=== PATIENT | female | born 1930 | race Caucasian/White ===

== ENCOUNTER → 2017-09-12 | Outpatient (CLI) | payer MEDICARE, MEDICAID ==
[~2017-09-12] MED LIST: ASPIR 8181 MG PO; ASPIRIN EC325 M1; CIPRODEX OTIC7.5 ML OTIC; CIPROFLOXACIN500 M1 PO; COUMADIN 5 MG TA5 M1 PO; CVS OMEGA-3 KR1 EACH; DOXYCYCLINE 10100 M1 PO; HYDROCODON-ACE1 EAC7 PO; KEFLEX500 M1 PO; LASIX 20 MG TAB20 MG PO; LEVAQUIN 250 M250 MG PO; LEVOTHYROXIN0.125 M1 PO; LOPRESSOR50 PO; LUTEIN6 M1 PO; MECLIZINE HCL25 M1 PO; METROCREAM45 GM TP; MYRBETRIQ50 MG PO; NITROGLYCERIN0.4 MG SUBLING; POTASSIUM20 PO; PREDNISONE 10 M10 MG PO; PROBIOTIC1 EAC1 PO; SIMVASTATIN40 MG PO; SORINE 80 MG TA80 M1 PO; SOTALOL; SYNTHROID100 MCG PO; SYNTHROID75 MCG PO; TRIAMCINOLONE A80 G2 TOP; VESICARE 5 MG TA5 M1; VITAMIN B-12500 MCG PO; VITAMIN D 5050000 I1 PO; VITAMIN D1000 UNI1 PO; VITAMIN D3400 UNIT PO; VYTORIN 10-101 EACH PO; VYTORIN 10-401 EACH; [UNRECOGNIZED DRUG - OTHER] PO
== END ==
LOC: M.RAD 07-25 16:58
DX: Z12.31 Encounter for screening mammogram for malignant neoplasm of breast (principal); M85.80 Other specified disorders of bone density and structure, unspecified site; Z78.0 Asymptomatic menopausal state

== ENCOUNTER 2018-04-30 20:11 | Emergency (ER) | payer MEDICARE, MEDICAID ==
[~2018-04-30] VITALS: Ht 162.6 cm; Wt 98.0 kg
[2018-04-30] MEDS ORDERED: SPIRONOLACTONE25 MG PO (20:40)
[2018-04-30] MEDS ORDERED: MYRBETRIQ50 MG PO (20:40)
[2018-04-30] MEDS ORDERED: SENNA8.6 MG PO (20:41)
[2018-04-30] MEDS ORDERED: TACROLIMUS0.5 G1 TOP (20:41)
[2018-04-30] MEDS ORDERED: NORCO 5-325 TA1 EAC1 PO (21:21)
[2018-04-30 22:01] VITALS: BP 122/94
== END 2018-04-30 22:02 | disposition home or self-care (01) ==
LOC: M.ERS 20:11
DX: S20.211A Contusion of right front wall of thorax, initial encounter (principal); I48.91 Unspecified atrial fibrillation; I50.9 Heart failure, unspecified; E78.00 Pure hypercholesterolemia, unspecified; Z95.0 Presence of cardiac pacemaker; Z90.11 Acquired absence of right breast and nipple; Z96.651 Presence of right artificial knee joint; Z96.642 Presence of left artificial hip joint; Z88.5 Allergy status to narcotic agent; Z88.8 Allergy status to other drugs, medicaments and biological substances; W01.190A Fall on same level from slipping, tripping and stumbling with subsequent striking against furniture, initial encounter; Y93.89 Activity, other specified; Y92.89 Other specified places as the place of occurrence of the external cause; Y99.8 Other external cause status

== ENCOUNTER → 2018-05-09 | Outpatient (CLI) | payer MEDICARE, MEDICAID ==
[~2018-05-09] MED LIST changes: +NORCO 5-325 TA1 EAC1 PO; +SENNA8.6 MG PO; +SPIRONOLACTONE25 MG PO; +TACROLIMUS0.5 G1 TOP
== END ==
LOC: M.RAD 13:00
DX: S20.211A Contusion of right front wall of thorax, initial encounter (principal); S22.31XA Fracture of one rib, right side, initial encounter for closed fracture; R59.0 Localized enlarged lymph nodes; E07.9 Disorder of thyroid, unspecified; M25.78 Osteophyte, vertebrae; G89.29 Other chronic pain; J98.4 Other disorders of lung; X58.XXXA Exposure to other specified factors, initial encounter; Y93.89 Activity, other specified; Y92.89 Other specified places as the place of occurrence of the external cause; Y99.8 Other external cause status; Z95.0 Presence of cardiac pacemaker

== ENCOUNTER 2019-03-11 19:27 | Emergency (ER) | payer MEDICARE, MEDICAID ==
[~2019-03-11] VITALS: Ht 162.6 cm; Wt 81.7 kg
[2019-03-11 20:14] LABS: URINE BILIRUBIN NEGATIVE (Negative); URINE BLOOD 3+ (Negative); URINE CLARITY CLOUDY; URINE COLOR YELLOW; URINE GLUCOSE-RANDOM NEGATIVE (Negative); URINE KETONES NEGATIVE (Negative); URINE LEUKOCYTES-REFLEX 2+ (Negative); URINE NITRITE-REFLEX POSITIVE (Negative); URINE PROTEIN 2+ (Negative); URINE SPECIFIC GRAVITY 1.025 (1.005-1.030); URINE UROBILINOGEN 0.2 E.U./dl (0.2-1.0)
[2019-03-11] MEDS ORDERED: MACROBID 100 M100 M1 PO (20:23)
[2019-03-11] MEDS ORDERED: PYRIDIUM200 MG PO (20:23)
[2019-03-11 20:30] LABS: BACTERIA-REFLEX >30 Many /HPF (None Seen); CASTS None Seen /LPF (None Seen); CRYSTALS None Seen /LPF (None Seen); SQUAMOUS 0-3 Few /LPF (0-3); URINE RBC >20 Many /HPF (0-2); URINE WBC-REFLEX >25 Many /HPF (0-5)
[2019-03-11 20:41] VITALS: BP 161/64
== END 2019-03-11 21:12 | disposition home or self-care (01) ==
LOC: M.ERS 19:27
PROVIDERS: Emergency Medicine
DX: N39.0 Urinary tract infection, site not specified (principal); I48.91 Unspecified atrial fibrillation; I50.9 Heart failure, unspecified; E78.00 Pure hypercholesterolemia, unspecified; Z96.642 Presence of left artificial hip joint; Z96.651 Presence of right artificial knee joint; Z90.11 Acquired absence of right breast and nipple; Z95.0 Presence of cardiac pacemaker; Z88.6 Allergy status to analgesic agent; Z88.8 Allergy status to other drugs, medicaments and biological substances

== ENCOUNTER → 2019-06-12 | Outpatient (CLI) | payer MEDICARE, MEDICAID ==
[~2019-06-12] MED LIST changes: +MACROBID 100 M100 M1 PO; +PYRIDIUM200 MG PO
== END ==
LOC: M.RAD 12:48
DX: N64.4 Mastodynia (principal); Z95.0 Presence of cardiac pacemaker; Z96.89 Presence of other specified functional implants

== ENCOUNTER → 2020-01-06 | Outpatient (CLI) | payer MEDICARE, MEDICAID | LOC: M.RAD 12:35 | PROVIDERS: ATTEND Family Medicine | DX: I48.91 Unspecified atrial fibrillation (principal); I51.7 Cardiomegaly; Z95.0 Presence of cardiac pacemaker ==

== ENCOUNTER 2020-06-14 22:02 | Inpatient (IN) | payer MEDICARE, MEDICAID ==
[~2020-06-14] VITALS: Ht 165.1 cm; Wt 99.6 kg
--- NOTE | ~2020-06-14 | EMS ---
[facility] [address] [place] [address] EMS Patient Care Report Name: SISTER FANNIE GONZALEZ Room: [address] IN [facility].#: [id number] Admission: 06/15/20 Attend Phys: Jason Deras Discharge: Date of : 32 Report #: [id number] THIS REPORT FOR: //name// Report Transmitted: 06/15/2020 07:58 EMS Care Summary [facility] Randy JC Incident [id number] @ 06/14/2020 21:01 Incident Location [address] [place] [address] Patient Fannie Gonzalez Female, 89 Years 1930 Patient Address [address] [place] [address] Patient History Presence of artificial hip joint,Unspecified dementia,Pacemaker/AICD,Personal history of other venous thrombosis and embolism,Hypertension (HTN), Patient Allergies , Patient Medications , Sotalol, Coumadin, Zocor, Lutein, Nitrofurantoin, Chief Complaint Pain-extremity lower Disposition Transported No Lights/Vowinckel Dispatch Reason Falls Transported To [facility] Narrative [id number] ARRIVED ON SCENE OF [facility] FOR A FALL WITH A HIP INJURY. [facility] PERSONNEL MADE PATIENT CONTACT ON AN UPSTAIRS FLOOR WITH AN AWAKE AND ALERT FEMALE SITTING COMFORTABLY IN A CHAIR IFD RESPONDERS OBTAINED [address] [place] [address] EMS Patient Care Report Name: SISTER FANNIE GONZALEZ Room: [address] IN [facility]#: [id number] Admission: 06/15/20 Attend Phys: Jason Deras Discharge: Date of : 32 Report #: [id number] VITAL SIGNS. THE PATIENT HAD NO OBVIOUS INJURIES BUT REPORTED SEVERE PAIN IN HER LEFT HIP RADIATING TO THE INNER THIGH AND DOWN THE INSIDE OF HER UPPER LEFT LEG AFTER SHE LOST HER FOOTING AND SLID DOWN TO THE FLOOR. PHYSICAL ASSESSMENT FINDINGS INCLUDED SHORTENING AND OUTWARD ROTATION OF THE LEFT LEG WHICH, ACCORDING TO THE PATIENT AND OTHERS ON SCENE, REPORTED THAT THE SHORTENING OF THE LEG HAS BEEN PRESENT SINCE HER HIP REPLACEMENT SEVERAL YEARS AGO. FANNIE WAS ASSISTED ONTO THE COT WHERE SHE WAS SECURED VIA 5 SAFETY STRAPS PRIOR TO BEING SECURED INTO THE AMBULANCE. TREATMENTS AND INTERVENTIONS WERE EXECUTED AND CONTINUED DURING TRANSPORT TO [facility] ER WITH A MINOR DECREASE IN PAIN FOLLOWING MORPHINE ADMINISTRATION. UPON ARRIVAL, FANNIE WAS REMOVED FROM THE UNIT AND TAKEN INSIDE TO ER 4 WHERE SHE WAS TRANSFERRED LATERALLY ONTO THE ER BED VIA DRAW SHEET. REPORT WAS GIVEN TO THE RECEIVING RN AND CARE WAS TRANSFERRED. [facility] BACK IN SERVICE. Initial Vitals @21:10Pain: 12/03, @21:48Pain: 11/02, @21:57Pain: 10/02, @21:10SpO2: 97, @21:55SpO2: 97, @21:20 @21:10P: 60,R: 16,BP: 160/70,Revised Trauma: 8, @21:55P: 76,R: 16,BP: 142/72,Revised Trauma: 8, @21:10GCS: 15, @21:55GCS: 15, @21:30Glucose: 119, Assessments @21:10MENTAL:SKIN:HEENT:LUNG SOUNDS:ABDOMEN:PELVIS//GI:EXTREMITIES:PULSE:NEURO: Impression Injury Procedures @21:32Morphine - 3.000 Milligrams (mg) - Intravenous (IV)Response: Improved@21:33Ondansetron - 4.000 Milligrams (mg) - Intravenous (IV)Response: Unchanged@21:50Morphine - 2.000 Milligrams (mg) - Intravenous (IV)Response: Improved@21:30 cc () Site: Antecubital-LeftResponse: UnchangedSucceeded@21:203-Lead ECGResponse: UnchangedSucceeded Timeline 20:58,Call Received 20:58,Dispatch Notified 20:58,Psap Call 21:01,[place] [address] EMS Patient Care Report Name: SISTER FANNIE GONZALEZ Room: [address] IN [facility]#: [id number] Admission: 06/15/20 Attend Phys: Jason Deras Discharge: Date of : 32 Report #: [id number] 21:01,En Route 21:08,On Scene 21:10,At Patient 21:10,BP: / M,PULSE: ,RR: R,SPO2: Ox,ETCO2: ,BG: ,PAIN: 9,GCS: , 21:10,BP: / M,PULSE: ,RR: R,SPO2: 97 Ox,ETCO2: ,BG: ,PAIN: ,GCS: , 21:10,BP: 160/70 M,PULSE: 60,RR: 16 R,SPO2: Ox,ETCO2: ,BG: ,PAIN: ,GCS: , 21:10,BP: / M,PULSE: ,RR: R,SPO2: Ox,ETCO2: ,BG: ,PAIN: ,GCS: 15, 21:20,3-Lead ECG,Response: UnchangedSucceeded, 21:20,BP: / M,PULSE: ,RR: R,SPO2: Ox,ETCO2: ,BG: ,PAIN: ,GCS: , 21:30, cc Site: Antecubital-Left,Response: UnchangedSucceeded, 21:30,BP: / M,PULSE: ,RR: R,SPO2: Ox,ETCO2: ,B,PAIN: ,GCS: , 21:32,Morphine - 3.000 Milligrams (mg) - Intravenous (IV),Response: Improved 21:33,Ondansetron - 4.000 Milligrams (mg) - Intravenous (IV),Response: Unchanged 21:33,Depart Scene 21:48,BP: / M,PULSE: ,RR: R,SPO2: Ox,ETCO2: ,BG: ,PAIN: 8,GCS: , 21:50,Morphine - 2.000 Milligrams (mg) - Intravenous (IV),Response: Improved 21:55,BP: / M,PULSE: ,RR: R,SPO2: 97 Ox,ETCO2: ,BG: ,PAIN: ,GCS: , 21:55,BP: 142/72 M,PULSE: 76,RR: 16 R,SPO2: Ox,ETCO2: ,BG: ,PAIN: ,GCS: , 21:55,BP: / M,PULSE: ,RR: R,SPO2: Ox,ETCO2: ,BG: ,PAIN: ,GCS: 15, 21:57,BP: / M,PULSE: ,RR: R,SPO2: Ox,ETCO2: ,BG: ,PAIN: 7,GCS: , 21:57,At Destination 22:17,Call Closed Disclaimer v1.1 Copyright 2020 [employer] This EMS Care Summary contains data elements from the applicable legal record (which may be displayed differently). It is designed to provide pertinent information for the following purposes: continuity of care, clinical quality, and state data reporting. The complete legal record is available to ED staff and administrators of the receiving hospital in [employer] Patient Tracker. All data is provided "as is."
[2020-06-14 22:05] VITALS: BP 143/56
[2020-06-14] MEDS ORDERED: LUTEIN6 MG PO (22:20)
[2020-06-14] MEDS ORDERED: MACRODANTIN50 M1 PO (22:21)
[2020-06-14 23:31] LABS: URINE BILIRUBIN NEGATIVE (Negative); URINE BLOOD 1+ (Negative); URINE CLARITY CLEAR; URINE COLOR YELLOW; URINE GLUCOSE-RANDOM NEGATIVE (Negative); URINE KETONES NEGATIVE (Negative); URINE LEUKOCYTES-REFLEX TRACE (Negative); URINE NITRITE-REFLEX NEGATIVE (Negative); URINE PROTEIN NEGATIVE (Negative); URINE SPECIFIC GRAVITY >= 1.030 (1.005-1.030); URINE UROBILINOGEN 0.2 E.U./dl (0.2-1.0)
[2020-06-14 23:54] LABS: HYALINE CASTS 0-3 Few /LPF (None Seen); SQUAMOUS >10 Many /LPF (0-3)
[2020-06-14 23:55] LABS: BACTERIA-REFLEX 1-9 Few /HPF (None Seen); CRYSTALS None Seen /LPF (None Seen); URINE RBC 3-10 Few /HPF (0-2); URINE WBC-REFLEX 0-5 Rare /HPF (0-5)
[2020-06-15 01:30] VITALS: BP 153/59
[2020-06-15 08:03] VITALS: BP 158/65
[2020-06-15 08:13] LABS: ABSOLUTE EOSINOPHILS 0.2 thou/uL (0.0-0.7); BASOPHILS 0.7 %; WBC 6.5 thou/uL (4.0-11.0)
[2020-06-15 08:16] LABS: ABSOLUTE MONOCYTES 0.8 thou/uL (0.0-1.2); RBC 4.31 mil/uL (4.20-5.00)
[2020-06-15 08:18] LABS: CALCIUM 9.2 mg/dL (8.5-10.1); CREATININE 0.8 mg/dL (0.6-1.3); MAGNESIUM 2.2 mg/dL (1.8-2.4); POTASSIUM 4.2 mmol/L (3.5-5.1)
[2020-06-15 08:20] LABS: ABSOLUTE LYMPHOCYTES 1.1 thou/uL (0.8-5.3); ABSOLUTE NEUTROPHILS 4.4 thou/uL (1.6-8.1); EOSINOPHILS 2.9 %; HEMOGLOBIN 12.5 gm/dL (12.0-15.0); LYMPHOCYTES 16.3 %; MCHC 32.9 g/dL (28.0-37.0); MCV 88.2 fL (80.0-100.0); MONOCYTES 12.5 %; MPV 9.4 fl. (7.2-11.1); NUCLEATED RBCS 0 /100WBC; PLATELET COUNT* 145 thou/uL (150-400); POLYS 67.6 %
[2020-06-15 08:41] LABS: INR 2.1; PROTIME 21.2 Seconds (9.20-11.50)
--- NOTE | 2020-06-15 17:00 | NUR ---
PT.RESTING IN BED. SHE WAS ALERT AND ORIENTED. SHE SAID SHE L[facility] IN [facility]. SHE HAS ASSISTANCE WITH WHATEVER SHE NEEDS. THE [facility] HAS HIRED AN RN-YVES PEDRAZA TO ASSIST THEM WITH THINGS-BATHING, DRESSING, ETC. PT.USES A WALKER AND A SCOOTER FOR MOBILITY. SHE WILL START PT/OT TOMORROW TO DETERMINE WHAT HER PLAN OF CARE WILL BE FOR DISCHARGE.
[2020-06-15 17:44] VITALS: BP 130/56
--- NOTE | 2020-06-15 18:14 | NUR ---
PATIENT HAS REMAINED A&OX3 (CONFUSED, FORGETFUL), PLEASANT AND COOPERATIVE WITH CARES THIS SHIFT. PATIENT HAS DENIED ANY PAIN. SPOKE WITH PATIENT'S INVOICE CHECKER, ANTWAN, THIS TO UPDATE ON PATIENT. PATIENT HAS DENIED ANY PAIN DURING THIS SHIFT. CALL LIGHT AND FREQUENTLY USED ITEMS WITHIN REACH.
[2020-06-16 04:47] LABS: INR 2.4; PROTIME 24.1 Seconds (9.20-11.50)
[2020-06-16 04:49] LABS: CALCIUM 9.3 mg/dL (8.5-10.1); CREATININE 0.8 mg/dL (0.6-1.3); POTASSIUM 4.4 mmol/L (3.5-5.1)
[2020-06-16 05:09] LABS: HEMATOCRIT 38.2 % (37.0-47.0); HEMOGLOBIN 12.6 gm/dL (12.0-15.0); MCHC 33.1 g/dL (28.0-37.0); MCV 87.7 fL (80.0-100.0); MPV 9.8 fl. (7.2-11.1); RBC 4.36 mil/uL (4.20-5.00); RDW-CV 13.9 % (10.5-14.5)
[2020-06-16 07:55] VITALS: BP 137/56
--- NOTE | 2020-06-16 08:07 | NUR ---
PATIENT HAS RESTED WELL THROUGHOUT MOST OF THE NIGHT. VSS ON 2L 02 VIA NASAL CANNULA. PATIENT UP WITH ASSIST X 2 TO THE BSC. MEDICATIONS GIVEN ORDERED AND CHARTED. LEFT UPPER ARM MIDLINE-SL. PATIENT INCONTINENT OF URINE AT TIMES AND URINE HAS VERY STRONG ODOR AND DARKY YELLOW COLORED. FALL PRECAUTIONS IN PLACE AND HOURLY ROUNDS MADE. WILL CONTINUE WITH PLAN OF CARE AND NURSING TO MONITOR.
--- NOTE | 2020-06-16 14:40 | NUR ---
RECEIVED CALL FROM PT'S DPOA ANTWAN. STATES PT IS BASELINE CONFUSED AND SLEEPS MOST OF THE DAY. ALSO STATES PT JUST RECEIVED A SLEEP APNEA MACHINE AND HAS BEEN USING IT. PT HAS ACCESS TO A WALKER, BEDSIDE COMMODE, AND SHOWER CHAIR AT THE [facility]. PER REPORT PT ALSO FORGETFUL AND NEEDS FREQUENT ORIENTATION. TRANSFERRED CALL AND PT SPOKE TO SISTER ANTWAN FOR ABOUT 30 MINUTES WHILE SITTING IN THE CHAIR TODAY.
[2020-06-16 17:26] VITALS: BP 156/57
--- NOTE | 2020-06-16 17:33 | NUR ---
PT ALERT AND ORIENTED X 3. PT IS FORGETFUL AT TIMES. NEEDS REORIENTING. PT SITTING IN THE CHAIR AT THIS TIME. PT WORKED WITH PHYSICAL THERAPY. UP STEADY WITH A WALKER. PT SLEEPS OFF AND ON. PT ALSO WORKED WITH OCCUPATIONAL THERAPY TODAY. SPOKE WITH PT'S CONTACT WHO STATES PT IS BASELINE CONFUSED AND USES A WALKER. O2 PLACED ON PT @ 1700. PT O2 SAT 89-90 WHILE UP IN THE CHAIR. PT ATE ALL MEALS TODAY. CALL LIGHT WITHIN REACH. WILL CONTINUE TO MONITOR.
[2020-06-16 20:20] VITALS: BP 110/45
[2020-06-17 04:53] LABS: INR 2.6
--- NOTE | 2020-06-17 05:00 | NUR ---
PATIENT HAS SLEPT WELL THROUGHOUT THE NIGHT. VSS ON RA. MEDICATIONS GIVEN ORDERED AND CHARTED. PATIENT USES CALL LIGHT APPROPRIATELY. PATIENT HAS BEEN INCONTINENT OF URINE DURING THE NIGHT AT TIMES. LEFT UPPER ARM MIDLINE-SL. FALL PRECAUTIONS IN PLACE AND HOURLY ROUNDS MADE. WILL CONTINUE WITH PLAN OF CARE AND NURSING TO MONITOR.
[2020-06-17 07:40] VITALS: BP 144/55
--- NOTE | 2020-06-17 12:00 | NUR ---
SPOKE WITH BEHZAD PEDRAZA/[facility] . DISCUSSED ARU AND THAT THERAPISTS ARE RECOMMENDING ACUTE REHAB AT DISCHARGE. SHE WAS IN AGREEMENT. SHE SAID SHE WILL HAVE PLENTY OF HELP AT HOME WHEN SHE DOES RETURN HOME TO THE [facility]. PT. ALSO USES A SCOOTER ALOT. SHE WOULD LIKE ME TO SPEAK WITH PT.ABOUT ARU. SHE WILL ALSO CALL HER LATER. CM SAW PT.AND EXPLAINED ARU AND THAT IT WOULD HELP HER TO BE MORE INDEPENDENT WHEN SHE WOULD GO HOME. SHE DID NOT FEEL SHE WAS DEPENDENT NOW. EXPLAINED SHE WOULD MOST LIKELY NEED ASSIST TO GET IN AND OUT OF BED AT HOME, HELP WITH BATHING, DRESSING. SHE AGREED. DID HAVE DIFFICULTY UNDERSTANDING CONCEPT OF ACUTE REHAB. TOLD HER NUBIA SHARP WOULD SEE HER LATER THIS AFTERNOON.
[2020-06-17 15:19] VITALS: BP 128/57
--- NOTE | 2020-06-17 16:08 | NUR ---
PT.HAS BEEN ACCEPTED TO [facility] AND CAN GO THERE LATER TODAY. NUBIA SHARP SAW PT.EARLIER AND FELT PT.WOULD BE A GOOD REHAB CANDIDATE. PT.AGREEABLE.
[2020-06-17] MEDS ORDERED: TRAMADOL 50 MG50 MG PO (16:14)
[2020-06-17] MEDS ORDERED: HYDROCODON-ACE1 EAC7 PO (16:14)
--- NOTE | 2020-06-17 16:39 | NUR ---
PT AWAKE/ALERT, BUT CONFUSED/FORGETFUL. VSS, FALL PRECAUTIONS IN PLACE. PT ON 2L O2 BY NC AT HS, SAME HOME USE. PT IS LYTTON. IV TO LAC PATENT, DRESSING C/D/I. MIDLINE TO CELESTINA PATENT, DRESSING C/D/8I WELL. PT IS ASSISTED TO REPOSITION Q2H FOR SKIN INTEGRITY. PT EVALUATED AND APPROVED FOR REHAB UNIT. PT TO TRANSFER PRIOR TO SHIFT CHANGE THIS EVENING. LENS COATING TECHNICIAN UPDATED ON PHONE BY CASE MANAGEMENT TODAY. PT RESTS IN ROOM WITH CALL LIGHT IN REACH.
--- NOTE | 2020-06-17 18:19 | NUR ---
PT TO REHAB UNIT APPROX 1800. PT TRANSPORTED ON BED PER EDUCATION PROGRAM ASSOCIATE REQUEST. PT PERSONAL BELONGINGS ACCOMPANIED PT TO NEW UNIT. PT TOPILETED AND NEW BRIEF JUST PRIOR TO TRANSFERRING TO REHAB. IV ACCESS REMOVED, NO AXCTIVE BLEEDING OR SWELLING AT SITES. PT ON 2L O2 AND WEARING MASK DURING TRANSPORT. PT SETTLED INTO NEW ROOM WITH CALL LIGHT IN REACH. REHAB STAFF NOTIFIED.
== END 2020-06-17 18:00 | DRG 556 ==
LOC: M.ERS 22:02 → M.TBA-ER 23:35 → M.ORTHSURG 06-15 01:18
PROVIDERS: Emergency Medicine; Internal Medicine; ADMIT Internal Medicine; ATTEND Internal Medicine
PROC: 05HY33Z Insertion of Infusion Device into Upper Vein, Percutaneous Approach (ICD-10-PCS; principal; 2020-06-15)
DX: M25.552 Pain in left hip (principal); I50.32 Chronic diastolic (congestive) heart failure; D68.69 Other thrombophilia; I48.91 Unspecified atrial fibrillation; E78.00 Pure hypercholesterolemia, unspecified; I49.1 Atrial premature depolarization; E78.5 Hyperlipidemia, unspecified; Z96.642 Presence of left artificial hip joint; Z96.651 Presence of right artificial knee joint; Z90.11 Acquired absence of right breast and nipple; Z20.822 Contact with and (suspected) exposure to COVID-19; Z95.0 Presence of cardiac pacemaker; Z88.6 Allergy status to analgesic agent; Z88.8 Allergy status to other drugs, medicaments and biological substances; Z79.899 Other long term (current) drug therapy; W18.39XA Other fall on same level, initial encounter; Y93.89 Activity, other specified; Y92.098 Other place in other non-institutional residence as the place of occurrence of the external cause; Y99.8 Other external cause status

== ENCOUNTER 2020-06-17 16:06 | Inpatient (IN) | payer MEDICARE, MEDICAID ==
[~2020-06-17] VITALS: Ht 165.1 cm; Wt 93.1 kg
[~2020-06-17 16:06] MED LIST changes: +LUTEIN6 MG PO; +MACRODANTIN50 M1 PO
[2020-06-17] MEDS ORDERED: TRAMADOL 50 MG50 MG PO (16:14)
[2020-06-17] MEDS ORDERED: HYDROCODON-ACE1 EAC7 PO (16:14)
[2020-06-17 20:32] VITALS: BP 149/63
[2020-06-18 04:45] LABS: HEMATOCRIT 37.1 % (37.0-47.0); HEMOGLOBIN 12.1 gm/dL (12.0-15.0); MCH 28.8 pg (26.0-34.0); MCHC 32.7 g/dL (28.0-37.0); MCV 88.3 fL (80.0-100.0); MPV 9.3 fl. (7.2-11.1); RBC 4.21 mil/uL (4.20-5.00); WBC 8.3 thou/uL (4.0-11.0)
[2020-06-18 04:59] LABS: CALCIUM 8.7 mg/dL (8.5-10.1); CREATININE 0.7 mg/dL (0.6-1.3); POTASSIUM 4.1 mmol/L (3.5-5.1)
[2020-06-18 08:20] VITALS: BP 118/54
[2020-06-18 20:28] VITALS: BP 135/63
[2020-06-19 04:50] LABS: INR 2.2; PROTIME 21.9 Seconds (9.20-11.50)
[2020-06-19 08:28] VITALS: BP 138/58
[2020-06-19 19:00] VITALS: BP 160/62
[2020-06-20 07:56] VITALS: BP 155/61
[2020-06-20 20:39] VITALS: BP 140/63
[2020-06-20 22:02] LABS: INR 1.9
[2020-06-21 05:09] LABS: INR 1.9
[2020-06-21 09:30] VITALS: BP 101/41
[2020-06-21 19:00] VITALS: BP 125/47
[2020-06-22 04:39] LABS: INR 1.8; PROTIME 18.9 Seconds (9.20-11.50)
[2020-06-22 08:10] VITALS: BP 143/50
[2020-06-22 19:00] VITALS: BP 118/48
[2020-06-23 05:08] LABS: HEMATOCRIT 38.6 % (37.0-47.0); HEMOGLOBIN 12.7 gm/dL (12.0-15.0); MPV 8.9 fl. (7.2-11.1); RBC 4.38 mil/uL (4.20-5.00); RDW-CV 14.4 % (10.5-14.5)
[2020-06-23 05:09] LABS: PROTIME 20.7 Seconds (9.20-11.50)
[2020-06-23 05:12] LABS: CALCIUM 9.6 mg/dL (8.5-10.1); CREATININE 0.8 mg/dL (0.6-1.3); POTASSIUM 4.2 mmol/L (3.5-5.1)
[2020-06-23 08:01] VITALS: BP 146/52
[2020-06-23 11:08] LABS: URINE BILIRUBIN NEGATIVE (Negative); URINE BLOOD NEGATIVE (Negative); URINE CLARITY CLEAR; URINE COLOR YELLOW; URINE GLUCOSE-RANDOM NEGATIVE (Negative); URINE KETONES NEGATIVE (Negative); URINE LEUKOCYTES-REFLEX NEGATIVE (Negative); URINE NITRITE-REFLEX NEGATIVE (Negative); URINE PROTEIN NEGATIVE (Negative); URINE SPECIFIC GRAVITY 1.025 (1.005-1.030); URINE UROBILINOGEN 0.2 E.U./dl (0.2-1.0)
[2020-06-23 19:00] VITALS: BP 120/48
[2020-06-24 07:20] VITALS: BP 154/67
[2020-06-24 09:21] LABS: INR 2.3
[2020-06-24 20:31] VITALS: BP 128/66
[2020-06-25 07:30] VITALS: BP 121/49
[2020-06-25 07:48] LABS: INR 2.5; PROTIME 25.1 Seconds (9.20-11.50)
[2020-06-25 20:24] VITALS: BP 134/55
[2020-06-26 08:00] VITALS: BP 140/48
[2020-06-26 20:31] VITALS: BP 123/41
[2020-06-27 08:29] VITALS: BP 144/63
[2020-06-27 20:09] VITALS: BP 111/28
[2020-06-28 09:30] VITALS: BP 108/51
[2020-06-28 19:00] VITALS: BP 127/68
[2020-06-29 04:43] LABS: PROTIME 20.2 Seconds (9.20-11.50)
[2020-06-29 04:49] LABS: HEMATOCRIT 39.3 % (37.0-47.0); HEMOGLOBIN 12.9 gm/dL (12.0-15.0); MCHC 32.8 g/dL (28.0-37.0); MCV 88.6 fL (80.0-100.0); MPV 9.4 fl. (7.2-11.1); RBC 4.44 mil/uL (4.20-5.00); WBC 6.3 thou/uL (4.0-11.0)
[2020-06-29 04:59] LABS: CHOLESTEROL 124 mg/dL (<200); HDL CHOLESTEROL 44 mg/dL (>40); LDL CHOLESTEROL 62 mg/dL (<100); TC:HDL 2.8 Ratio (Not establshd); TRIGLYCERIDE 90 mg/dL (<150); VLDL 18 mg/dL (<40)
[2020-06-29 05:06] LABS: SERUM ASSESSMENT Clear
[2020-06-29 09:00] VITALS: BP 151/50
[2020-06-29 13:02] LABS: ALBUMIN 3.1 g/dL (3.4-5.0); CALCIUM 10.5 mg/dL (8.5-10.1); CREATININE 0.9 mg/dL (0.6-1.3); POTASSIUM 4.6 mmol/L (3.5-5.1); TOTAL BILIRUBIN 0.5 mg/dL (<0.1-1.0)
[2020-06-29 19:00] VITALS: BP 115/52
[2020-06-30 05:09] LABS: HEMATOCRIT 37.7 % (37.0-47.0); HEMOGLOBIN 12.5 gm/dL (12.0-15.0); MCH 28.9 pg (26.0-34.0); MCV 87.4 fL (80.0-100.0); MPV 9.4 fl. (7.2-11.1); RBC 4.32 mil/uL (4.20-5.00); RDW-CV 14.1 % (10.5-14.5)
[2020-06-30 05:23] LABS: CALCIUM 9.5 mg/dL (8.5-10.1); CREATININE 0.8 mg/dL (0.6-1.3); POTASSIUM 4.5 mmol/L (3.5-5.1)
[2020-06-30 08:00] VITALS: BP 128/54
[2020-06-30 20:29] VITALS: BP 149/53
[2020-07-01 08:19] VITALS: BP 101/47
[2020-07-01 13:18] LABS: HEMOGLOBIN 13.1 gm/dL (12.0-15.0); MCHC 32.8 g/dL (28.0-37.0); MCV 88.6 fL (80.0-100.0); MPV 9.4 fl. (7.2-11.1); RBC 4.52 mil/uL (4.20-5.00); RDW-CV 14.2 % (10.5-14.5); WBC 8.1 thou/uL (4.0-11.0)
[2020-07-01 13:31] LABS: INR 1.9; PROTIME 19.9 Seconds (9.20-11.50)
[2020-07-01 13:39] LABS: ALBUMIN 3.3 g/dL (3.4-5.0); CALCIUM 9.4 mg/dL (8.5-10.1); CREATININE 0.9 mg/dL (0.6-1.3); POTASSIUM 4.3 mmol/L (3.5-5.1); TOTAL BILIRUBIN 0.7 mg/dL (<0.1-1.0); TOTAL PROTEIN 7.7 g/dL (6.4-8.2)
[2020-07-01 19:35] VITALS: BP 108/49
[2020-07-02 07:28] VITALS: BP 143/54
[2020-07-02 19:24] VITALS: BP 131/58
[2020-07-03 04:25] LABS: HEMATOCRIT 38.6 % (37.0-47.0); HEMOGLOBIN 12.8 gm/dL (12.0-15.0); MCH 29.2 pg (26.0-34.0); MCHC 33.1 g/dL (28.0-37.0); MCV 88.2 fL (80.0-100.0); RBC 4.37 mil/uL (4.20-5.00); RDW-CV 14.2 % (10.5-14.5); WBC 7.6 thou/uL (4.0-11.0)
[2020-07-03 07:57] VITALS: BP 152/62
[2020-07-03 14:34] LABS: PROTIME 20.3 Seconds (9.20-11.50)
[2020-07-03 14:44] LABS: ALBUMIN 3.1 g/dL (3.4-5.0); CALCIUM 9.2 mg/dL (8.5-10.1); CREATININE 0.8 mg/dL (0.6-1.3); POTASSIUM 4.5 mmol/L (3.5-5.1); TOTAL BILIRUBIN 0.5 mg/dL (<0.1-1.0); TOTAL PROTEIN 7.6 g/dL (6.4-8.2)
[2020-07-03 20:00] VITALS: BP 134/51
[2020-07-04 07:30] VITALS: BP 140/59
[2020-07-04 13:27] LABS: INR 1.9; PROTIME 19.5 Seconds (9.20-11.50)
[2020-07-04 20:00] VITALS: BP 127/54
[2020-07-05 07:40] VITALS: BP 127/61
[2020-07-05 20:00] VITALS: BP 150/55
[2020-07-06 07:26] VITALS: BP 119/56
[2020-07-06 20:00] VITALS: BP 136/54
[2020-07-07 04:42] LABS: HEMATOCRIT 37.9 % (37.0-47.0); HEMOGLOBIN 12.5 gm/dL (12.0-15.0); MCH 29.2 pg (26.0-34.0); MCV 88.4 fL (80.0-100.0); MPV 9.1 fl. (7.2-11.1); RBC 4.29 mil/uL (4.20-5.00); RDW-CV 14.1 % (10.5-14.5); WBC 6.3 thou/uL (4.0-11.0)
[2020-07-07 04:48] LABS: CALCIUM 9.2 mg/dL (8.5-10.1); CREATININE 0.8 mg/dL (0.6-1.3); POTASSIUM 4.6 mmol/L (3.5-5.1)
[2020-07-07 08:23] VITALS: BP 129/62
[2020-07-07 20:00] VITALS: BP 138/52
[2020-07-08 08:36] VITALS: BP 134/52
[2020-07-08 08:50] VITALS: BP 134/52
[2020-07-08 12:35] VITALS: BP 134/52
[2020-07-08 14:07] VITALS: BP 134/52
== END 2020-07-08 13:50 | disposition home health service (06) | DRG 948 ==
LOC: M.REH 16:06
PROVIDERS: Internal Medicine; ADMIT Physical Medicine & Rehabilitation; ATTEND Physical Medicine & Rehabilitation
DX: R53.81 Other malaise (principal); I50.32 Chronic diastolic (congestive) heart failure; D68.59 Other primary thrombophilia; I48.20 Chronic atrial fibrillation, unspecified; E78.5 Hyperlipidemia, unspecified; E78.00 Pure hypercholesterolemia, unspecified; Z96.642 Presence of left artificial hip joint; Z96.651 Presence of right artificial knee joint; L29.8 Other pruritus; Z95.0 Presence of cardiac pacemaker; Z88.8 Allergy status to other drugs, medicaments and biological substances; Z79.899 Other long term (current) drug therapy; Z90.11 Acquired absence of right breast and nipple

== ENCOUNTER → 2021-03-23 | Outpatient (CLI) | payer MEDICARE, MEDICAID ==
[~2021-03-23] MED LIST changes: +TRAMADOL 50 MG50 MG PO
== END ==
LOC: M.ULTRA 12:35
PROVIDERS: ATTEND Family Medicine
DX: I70.202 Unspecified atherosclerosis of native arteries of extremities, left leg (principal)